=== PATIENT | female | born 1985 | race Caucasian/White ===

== ENCOUNTER → 2017-07-09 | Outpatient (CLI) | payer OTHER ==
--- NOTE | 2017-07-09 13:54 | RAD ---
Lumbar x-rays Indication: Lower back pain/spasm and standing for 2 long overlying down for 2 long. No known injury Technique: AP and lateral views of the lumbar spine Comparison: None Findings: Transitional anatomy noted. There is loss of normal lumbar lordosis. This is could be due to muscle spasm or technique. No vertebral body height loss. Intervertebral disc space narrowing noted at L2-L3 with endplate sclerosis and likely Schmorl's node suggesting degenerative disc disease. SI joints within normal limits. Impression: 1. Loss of lumbar lordosis. This could be due to muscle spasm or technique. 2. Degenerative disc disease at L2-L3. Transitional anatomy.
--- NOTE | 2017-07-09 14:02 | RAD ---
Knee x-rays Indication: Bilateral knee pain. Right knee is worse on left. Patient has surgery to 3 years ago for meniscal and ACL repair. Technique: AP and lateral views of the bilateral knee Comparison: None Findings: Right knee: No acute fracture or dislocation. Evidence of ACL repair with anchor in the lateral femoral condyle. Mild tricompartmental osteoarthritis of the knee joint, more prominent in the medial joint compartment. Left knee: No acute fracture or dislocation. No significant evidence of arthritic process. Impression: Mild right knee osteoarthritis. Evidence of ACL repair on the right.
== END | disposition home or self-care (01) ==
LOC: RAD 09:56
PROVIDERS: ATTEND Surgery
DX: M51.36 Other intervertebral disc degeneration, lumbar region (principal); M40.46 Postural lordosis, lumbar region; S89.91XA Unspecified injury of right lower leg, initial encounter; S89.92XA Unspecified injury of left lower leg, initial encounter; M17.11 Unilateral primary osteoarthritis, right knee; X58.XXXA Exposure to other specified factors, initial encounter; Y93.89 Activity, other specified; Y92.89 Other specified places as the place of occurrence of the external cause; Y99.8 Other external cause status
CPT/HCPCS: 72100; 73560